=== PATIENT | male | born 1965 | race Caucasian/White ===

== ENCOUNTER 2018-11-26 11:49 | Day surgery (SDC) | payer BC ==
[~2018-11-26 11:49] MED LIST: Lactated Ringers 1,000 ML IV SCH
--- NOTE | 2018-11-26 12:37 | PCM.PREANE ---
Preanesthetic Assessment - Anesthesia/Transfusion/Family Hx Anesthesia History: No Prior Anesthesia Family History of Anesthesia Reaction: No Transfusion History: No Prior Transfusion(s) Intubation History: Unknown - Review of Systems General: No Symptoms Pulmonary: No Symptoms Cardiovascular: No Symptoms Gastrointestinal: No Symptoms, Other (screening colonoscopy) Neurological: No Symptoms Other: Reports: None - Physical Assessment NPO Status Date: 11/26/18 NPO Status Time: 06:45 O2 Sat by Pulse Oximetry: 99 Respiratory Rate: 20 Vital Signs: Last Vital Signs Temp 36.8 C 11/26/18 12:00 Pulse 112 H 11/26/18 12:00 Resp 20 11/26/18 12:00 BP 139/92 H 11/26/18 12:00 Pulse Ox 99 11/26/18 12:00 Height: 1.75 m Weight: 86.636 kg ASA Class: 2 Mental Status: Alert & Oriented x3 Airway Class: Mallampati = 2 Dentition: Reports: Normal Dentition (bonded front upper teeth x2), [place](s) ( x2 lower right (back) and x1 upper right (back)) Thyro-Mental Finger Breadths: 3 Mouth Opening Finger Breadths: 3 ROM/Head Extension: Full Lungs: Clear to Auscultation, Normal Respiratory Effort Cardiovascular: Regular Rate, Regular Rhythm - Allergies Allergies/Adverse Reactions: Allergies Allergy/AdvReac Type Severity Reaction Status Date / Time No Known Allergies Allergy Verified 11/21/18 08:56 - Blood Blood Available: No - Anesthesia Plan Pre-Op Medication Ordered: None - Acknowledgements Anesthesia Type Planned: MAC Pt an Appropriate Candidate for the Planned Anesthesia: Yes Alternatives and Risks of Anesthesia Discussed w Pt/Guardian: Yes Pt/Guardian Understands and Agrees with Anesthesia Plan: Yes PreAnesthesia Questionnaire HEENT History: Reports: Allergic Rhinitis, Other (See Below) Other HEENT History: wears glasses/contacts Cardiovascular History: Reports: Hypertension Gastrointestinal History: Reports: Other (See Below) Other Gastrointestinal History: occasional heartburn- takes OTC prilosec Musculoskeletal History: Reports: Fracture Other Musculoskeletal History: compression fx of vertebrate Neurological History: Reports: Concussion - SUBSTANCE USE Smoking Status *Q: Never Smoker Recreational Drug Use History: No - HOME MEDS Home Medications: Home Meds Lisinopril 5 mg PO DAILY 11/21/18 [History] - CURRENT (IN HOUSE) MEDS Current Meds: Current Medications Lactated Ringer's (Ringers, Lactated) 1,000 mls @ 125 mls/hr IV ASDIRECTED [facility] Last Admin: 11/26/18 12:15 Dose: 125 mls/hr
[2018-11-26] MEDS ORDERED: Propofol 200 MG/20 ML SDV ONE (12:46)
[2018-11-26] MEDS ORDERED: Midazolam 1 MG/ML 2 ML SDV ONE (12:47)
[2018-11-26] MEDS ORDERED: fentaNYL 100 MCG/2 ML SDV ONE (12:47)
--- NOTE | 2018-11-26 13:34 | PCM.OPNOTE ---
- General Post-Op/Procedure Note Date of Surgery/Procedure: 11/26/18 Operative Procedure(s): Colonoscopy Pre Op Diagnosis: Desire for colorectal cancer screening Post-Op Diagnosis: No evidence of neoplasia Anesthesia Technique: MAC (ASA II) Primary Surgeon: Haris Kaminski Condition: Good Free Text/Narrative:: DICTATION [id number] CPT CODE [id number]
[2018-11-26] MEDS ORDERED: Lactated Ringers 1,000 ML IV SCH (13:45)
--- NOTE | 2018-11-26 14:13 | OR ---
SURGEON: Haris Kaminski M.D. DATE OF PROCEDURE: 11/26/2018 OPERATION PERFORMED: Colonoscopy. ANESTHESIA: MAC. ASA CLASSIFICATION: II. PREOPERATIVE DIAGNOSIS: Desire for colorectal cancer screening. POSTOPERATIVE DIAGNOSIS: No evidence of neoplasia. DESCRIPTION OF PROCEDURE: The patient was taken to the endoscopy room and positioned on the endoscopy table in the left lateral decubitus position. Time-out was called for appropriate identification of the patient and procedure. Monitored anesthesia care was provided. The colonoscope was inserted into the rectum and advanced without difficulty to the cecum where the colonoscope was retroflexed to visualize the ascending colon from below. The colonoscope was then straightened and slowly withdrawn. The cecum, ascending colon, hepatic flexure, transverse colon, splenic flexure, descending colon, sigmoid colon, and rectum were very well visualized. There were no tumors, polyps, diverticula, or angiodysplastic changes. There was no evidence of inflammatory bowel disease. Once the colonoscope was withdrawn to the rectum, it was retroflexed to visualize the anal orifice from above. Again, no tumors or polyps were seen, and there were no acute hemorrhoidal changes. The colonoscope was then straightened, the rectum aspirated, and the colonoscope removed. The patient tolerated the procedure well and was taken to recovery room in stable condition. SANJANA / MARIA DE JESUS /[id number]
== END 2018-11-26 14:30 | disposition home or self-care (01) ==
LOC: MW.SDS 11:49
PROVIDERS: ATTEND Surgery
DX: Z12.11 Encounter for screening for malignant neoplasm of colon (principal); I10 Essential (primary) hypertension; Z79.899 Other long term (current) drug therapy; Z80.0 Family history of malignant neoplasm of digestive organs
CPT/HCPCS: 45378; J2250; J2704; J3010; J7120